=== PATIENT | female | born 1945 | race Caucasian/White ===

== ENCOUNTER → 2017-01-31 | Outpatient (CLI) | payer OTHER ==
[~2017-01-31] MED LIST: CALCITRIOL0.5 MCG PO; DICLOFENAC SODI75 MG PO; LEVOXYL0.088 MG PO; LOPRESSOR50 MG PO; METOPROLOL SUCC50 M2 PO; SIMVASTATIN10 M1 PO; VITAMIN D32000 I2 PO
== END | disposition home or self-care (01) ==
LOC: MA 08:50
PROC: BH02ZZZ Plain Radiography of Bilateral Breasts (ICD-10-PCS; principal; 2017-01-31)
DX: Z12.31 Encounter for screening mammogram for malignant neoplasm of breast (principal)
CPT/HCPCS: G0202